=== PATIENT | female | born 1955 | race American Indian/Alaskan Native ===

== ENCOUNTER 2019-01-13 09:20 | Day surgery (SDC) | payer OTHER ==
[~2019-01-13 09:20] MED LIST: NACL 0.9% 1000 ML 1,000 ML IV SCH
[2019-01-13] MEDS ORDERED: XYLOCAINE MPF 2% ONE (11:00)
--- NOTE | 2019-01-13 11:28 | Anesthesia Consultation ---
Anesthesia Consult and Med Hx Date of service: 01/13/19 - Airway Anesthetic Teeth Evaluation: Good ROM Head & Neck: Adequate Mental/Hyoid Distance: Inadequate Mallampati Class: Class III Intubation Access Assessment: Possibly Difficult - Pulmonary Exam CTA: Yes - Cardiac Exam Cardiac Exam: RRR - Pre-Operative Health Status ASA Pre-Surgery Classification: ASA3 Proposed Anesthetic Plan: MAC - Pulmonary Hx Smoking: No Hx Asthma: Yes (no albuterol use in 2 months) Hx Sleep Apnea: Yes (compliant with CPAP) - Cardiovascular System Hx Hypertension: Yes Hx Heart Attack/AMI: No Hx Percutaneous Transluminal Coronary Angioplasty (PTCA): No - Central Nervous System Hx Seizures: No (topimax prn for migraines) CVA: No - Gastrointestinal Hx Gastroesophageal Reflux Disease: Yes - Endocrine Hx Renal Disease: No Hx Liver Disease: No Hx Insulin Dependent Diabetes: No Hx Non-Insulin Dependent Diabetes: No Hx Thyroid Disease: No - Other Systems Hx Obesity: Yes - Additional Comments Anesthesia Medical History Comments: No hx anesthetic complications.
--- NOTE | 2019-01-13 11:28 | Anesthesia Day of Surgery ---
Anesthesia Day of Surgery - Day of Surgery Patient Examined: Yes Patient H&P Reviewed: Yes Patient is NPO: Yes
[2019-01-13] MEDS ORDERED: DIPRIVAN 10 MG/ML IV ONE ×3 (11:45→12:35)
--- NOTE | 2019-01-13 12:34 | Procedure Note ---
Date of procedure: 01/13/19 Pre-op diagnosis: GERD/Colon Polyp Screening/F/H/O Colon Cancer (father) Post-op diagnosis: other (Moderate,Erosive Esophagitis/Gastitis/Solitary,Ascending Colon Polyp (removed by Cold Biopsy)/ Minor,Left Colon Diverticuli/ Mild to Moderate Internal Hemorrhoid) Procedure: EGd with Biopsy and Colonoscopu with Cold Biopsy Anesthesia: [facility] [place] Surgeon: ZORAIDA HERNANDEZ Estimated blood loss: minimal Pathology: list Specimen disposition: to lab Condition: stable Disposition: same day (Treat with PPI and encourage fiber intake. Avoid aspirin,NSAID and anticoagulants for 4 days, other suazo resume home medication and follow up in 1 to 2 weeks ([phone]).)
[2019-01-13 12:53] VITALS: BP 154/73
--- NOTE | 2019-01-13 12:58 | History and Physical Report ---
HISTORY OF PRESENT ILLNESS: This is a 63-year-old -[place] female with a strong family history of cancer. The patient's father had cancer. She has had colon polyps in the past and has come back for colon polyp screening. Last colonoscopy was done in 2013. In addition, she has been having some GERD symptoms and is to have an EGD done also for further assessment. She has a history of enlarged heart, history of asthma, arthritis. MEDICATIONS: Include aspirin, nitroglycerin, calcium, albuterol, ____ and topiramate. ALLERGIES: No known allergies. PHYSICAL EXAMINATION: VITAL SIGNS: She is afebrile. Blood pressure 125/71, pulse is 61, height is 5 feet 10 inches, weight is 124 pounds. HEENT: Shows no JVD. LUNGS: Shows reduced breath sounds. CARDIOVASCULAR: Normal. ABDOMEN: Soft. Bowel sounds present. NEUROLOGIC: She is alert and oriented. She has had status post hysterectomy as well as cholecystectomy. ASSESSMENT: Colon polyp screening, family history of cancer. The patient's father had colon cancer, gastroesophageal reflux disease symptoms, esophagitis, hypertension. PLAN: Plan is to do an EGD and a colonoscopy at [facility] and the patient has used to be ____ JOB# [id number] TYREL/AYLIN
--- NOTE | 2019-01-13 13:25 | Operative Report ---
PROCEDURE: EGD with biopsy. INDICATIONS: A 63-year-old -[place] female who has been having GERD symptoms. EGD was done to make sure there was not any significant upper GI pathology present. DESCRIPTION OF PROCEDURE: The procedure was done after getting informed consent with MAC anesthesia. Instrument was passed through the hypopharynx into the esophagus, which showed moderate erosive esophagitis. Biopsy was done from the distal esophagus. Stomach likewise showed antral gastritis. No ulcers were noted in the straight or the retroverted view. Biopsy was done from the gastric antrum, gastric body and angular incisura. Pylorus was patent. Duodenum in the first and the second portion appeared normal. There was minimal bleeding from the biopsy sites. No complications associated with the procedure. ASSESSMENT: Gastroesophageal reflux disease symptoms, moderate erosive esophagitis, gastritis. No peptic ulcer disease noted. PLAN: To treat the patient with PPI, have the patient avoid aspirin and aspirin-related products for the next few days. Follow up in the office in 1-2 weeks' time and to do a colonoscopy as part of colon polyp screening. Procedure was done in the GI lab with assistance of Anesthesia and in the presence and with the assistance of the GI lab team, which included CHRISTA, Pepper Zhou and HODAN rossi. JOB# [id number] TYREL/AYLIN
--- NOTE | 2019-01-13 13:27 | Operative Report ---
PROCEDURE: Colonoscopy. INDICATIONS: She had an EGD done prior to the colonoscopy, which showed presence of moderate erosive esophagitis and gastritis, but no peptic ulcer disease. She does have a family history of cancer. The patient's father had colon cancer. She has prior history of colon polyp. DESCRIPTION OF PROCEDURE: The procedure was done after getting informed consent with MAC anesthesia. Initial rectal exam was unremarkable. Instrument was passed through the rectum onto the cecum, which was identified with the ileocecal valve and the appendiceal orifice. The cecum was also reviewed in the retroverted view as well as in the straight view by withdrawing it to the hepatic flexure and reintroducing it to the cecum. There was a polyp. The cecum did not show any polyps. However, in the ascending colon, there was a 9 mm polyp that was removed by cold biopsy. The remaining part of the cecum, ascending colon and transverse colon showed normal mucosa. There were a few scattered diverticula noted in the left colon and the rectum showed some mild to moderate internal hemorrhoids in the retroverted view. There was minimal bleeding from the biopsy sites and no complications associated with the procedure. ASSESSMENT: Colon polyp screening, family history of cancer. The patient's father had colon cancer. Solitary ascending colon polyp removed by cold biopsy with minimal bleeding. Minor left colon diverticular disease and [id number] internal hemorrhoids. PLAN: The patient will be encouraged to take fiber supplements, avoid aspirin and aspirin-related products for the next few days, resume previous medication. The patient will also be placed on PPI because of the EGD findings of moderate erosive esophagitis and gastritis and asked to follow up in the office in 1-2 weeks' time. The procedure was done with assistance of the GI lab team, which included CHRISTA, Pepper Zhou and enid from the OR as well as the assistance from anesthesia. JOB# [id number] TYREL/AYLIN
== END 2019-01-13 09:21 | disposition home or self-care (01) ==
LOC: GIO 09:20
DX: Z12.11 Encounter for screening for malignant neoplasm of colon (principal); D12.2 Benign neoplasm of ascending colon; K29.50 Unspecified chronic gastritis without bleeding; K21.0 Gastro-esophageal reflux disease with esophagitis; K57.30 Diverticulosis of large intestine without perforation or abscess without bleeding; K64.8 Other hemorrhoids; I10 Essential (primary) hypertension; J45.909 Unspecified asthma, uncomplicated; G47.30 Sleep apnea, unspecified; E66.9 Obesity, unspecified; Z68.32 Body mass index [BMI] 32.0-32.9, adult; Z90.710 Acquired absence of both cervix and uterus; Z98.890 Other specified postprocedural states; Z80.0 Family history of malignant neoplasm of digestive organs; Z79.899 Other long term (current) drug therapy; Z79.82 Long term (current) use of aspirin
CPT/HCPCS: 43239; 45380; 88305; 88342; J2704; J7030